=== PATIENT | male | born 1975 | race Caucasian/White ===

== ENCOUNTER 2020-02-07 18:53 | Emergency (ER) | payer MEDICAID ==
--- NOTE | 2020-02-07 19:27 | EDM.PDOC ---
ED HPI GENERAL MEDICAL PROBLEM - General Chief Complaint: ENT Problem Stated Complaint: EAR PAIN Time Seen by Provider: 02/07/20 19:16 Source of Information: Reports: Patient, RN, RN Notes Reviewed History Limitations: Reports: No Limitations - History of Present Illness INITIAL COMMENTS - FREE TEXT/NARRATIVE: Patient presents to ER with complaint of right ear pain that began today. Patient denies recurrent ear infections, states the last time he had an ear infection he was a child. States he does wear his Bluetooth in the right ear, and did get a headache today from the ear pain. Denies any throat pain, fever, chills, nausea, vomiting, diarrhea, chest pains or shortness of breath. Onset: Today Right Ear Pain Score (Numeric/FACES): 8 - Related Data Allergies Allergy/AdvReac Type Severity Reaction Status Date / Time pseudoephedrine Allergy Hyperactivi Verified 02/07/20 19:11 [From Actifed] ty triprolidine [From Actifed] Allergy Hyperactivi Verified 02/07/20 19:11 ty Home Meds: Home Meds . [No Known Home Meds] 02/07/20 [History] Past Medical History - Past Health History Medical/Surgical History: Denies Medical/Surgical History Social & Family History - Family History Family Medical History: No Pertinent Family History - Tobacco Use Tobacco Use Status *Q: Current Every Day Tobacco User Years of Tobacco use: 30 Packs/Tins Daily: 1 - Caffeine Use Caffeine Use: Reports: Soda - Recreational Drug Use Recreational Drug Use: No ED ROS ENT - Review of Systems Review Of Systems: Comprehensive ROS is negative, except as noted in HPI. ED EXAM, ENT - Physical Exam Exam: See Below Exam Limited By: No Limitations General Appearance: Alert, WD/WN, No Apparent Distress Eye Exam: Bilateral Eye: EOMI, Normal Inspection Ears: Normal External Exam, Hearing Grossly Normal, TM Dullness, TM Erythema, Cerumen Impaction (right ear) Nose: Normal Inspection, Normal Mucousa, No Blood Mouth/Throat: Normal Inspection, Normal Gums, Normal Lips, Normal Oropharynx, Normal Teeth Head: Atraumatic, Normocephalic Neck: Normal Inspection, Supple, Non-Tender, Full Range of Motion Respiratory/Chest: No Respiratory Distress, Normal Breath Sounds, No Accessory Muscle Use, Chest Non-Tender, Decreased Breath Sounds, Crackles (throughout) Cardiovascular: Normal Peripheral Pulses, Regular Rate, Rhythm, No Edema, No Gallop, No JVD, No Murmur, No Rub GI/Abdominal: Normal Bowel Sounds, Soft, Non-Tender, No Organomegaly, No Distention, No Abnormal Bruit, No Mass (Male) Exam: Deferred Rectal (Males) Exam: Deferred Back: Normal Inspection, Full Range of Motion Extremities: Normal Inspection, Normal Range of Motion, Non-Tender, No Pedal Edema, Normal Capillary Refill Neurological: Alert, Oriented, CN II-XII Intact, Normal Cognition, Normal Gait, Normal Reflexes, No Motor/Sensory Deficits Psychiatric: Normal Affect, Normal Mood Skin: Warm, Dry, Intact, Normal Color, No Rash Lymphatic: No Adenopathy ED ENT PROCEDURES - Additional/Other Procedure(s) Other (Free Text) Procedure(s): Rhino ear washer used to clear cerumen from the right ear canal Course - Vital Signs Last Recorded V/S: Last Vital Signs Temp 97.7 F 02/07/20 19:08 Pulse 69 02/07/20 19:08 Resp 16 02/07/20 19:08 BP 121/81 02/07/20 19:08 Pulse Ox 96 02/07/20 19:08 - Orders/Labs/Meds Meds: Medications Discontinued Medications Generic Name Dose Route Start Last Admin Trade Name Kelsi PRN Reason Stop Dose Admin Amoxicillin 1 packet 02/07/20 19:40 Take Home: Amoxicillin 500 Mg, 2 Cap Pack PO 02/07/20 19:41 ONETIME ONE Departure - Departure Time of Disposition: 19:43 Disposition: Home, Self-Care 01 Condition: Good Clinical Impression: Otitis media Qualifiers: Otitis media type: serous Chronicity: acute Laterality: right Recurrence: not specified as recurrent Qualified Code(s): H65.01 - Acute serous otitis media, right ear - Discharge Information *PRESCRIPTION DRUG MONITORING PROGRAM REVIEWED*: No *COPY OF PRESCRIPTION DRUG MONITORING REPORT IN PATIENT RUBÉN: No Instructions: Otitis Media, Adult, [id number], Probiotics Referrals: PCP,None [Primary Care Provider] - Forms: ED Department Discharge Additional Instructions: RX: Amoxicillin Follow up with your primary care facility if no improvement Sepsis Event Note (ED) - Evaluation Sepsis Screening Result: No Definite Risk - Focused Exam Vital Signs: Vital Signs Temp Pulse Resp BP Pulse Ox 02/07/20 19:08 97.7 F 69 16 121/81 96
[2020-02-07] MEDS: Take Home: Amoxicillin 500 MG Cap, 2 Cap Pack PO ONE (19:55)
== END 2020-02-07 20:00 | disposition home or self-care (01) ==
LOC: VM.ED 18:53
DX: H65.01 Acute serous otitis media, right ear (principal); H61.21 Impacted cerumen, right ear; F17.210 Nicotine dependence, cigarettes, uncomplicated; Z88.8 Allergy status to other drugs, medicaments and biological substances
CPT/HCPCS: 69209; 69210; 99282-25; 99283; A9270-GY

== ENCOUNTER 2020-02-12 08:26 | Emergency (ER) | payer OTHER ==
[2020-02-12] MEDS ORDERED: Orphenadrine 60 MG/2 ML Inj IM STA (08:44)
[2020-02-12] MEDS ORDERED: Ketorolac 30 MG/ML SDV IM ONE (08:44)
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
== END 2020-02-12 10:13 | disposition home or self-care (01) ==
LOC: VM.ED 08:26
DX: S16.1XXA Strain of muscle, fascia and tendon at neck level, initial encounter (principal); S29.012A Strain of muscle and tendon of back wall of thorax, initial encounter; Z88.8 Allergy status to other drugs, medicaments and biological substances; V53.5XXA Driver of pick-up truck or van injured in collision with car, pick-up truck or van in traffic accident, initial encounter
CPT/HCPCS: 72125; 96372; 99283; 99284-25; J1885; J2360

== ENCOUNTER 2020-04-30 18:48 | Emergency (ER) | payer SELFPAY ==
[2020-04-30] MEDS: Proparacaine 0.5% Ophth Soln 15 ML Bottle EYERT PRN (19:10)
[2020-04-30] MEDS: Proparacaine 0.5% Ophth Soln 15 ML Bottle ONE (19:10)
[2020-04-30] MEDS: Fluorescein 1 MG Ophth Strip EYERT ONE (19:10)
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
== END 2020-04-30 19:30 | disposition home or self-care (01) ==
LOC: VM.ED 18:48
DX: S05.91XA Unspecified injury of right eye and orbit, initial encounter (principal); Z88.8 Allergy status to other drugs, medicaments and biological substances; W22.8XXA Striking against or struck by other objects, initial encounter; Y99.0 Civilian activity done for income or pay
CPT/HCPCS: 99282; 99283